=== PATIENT | female | born 1975 | race Caucasian/White ===

== ENCOUNTER 2018-06-08 13:04 | Emergency (ER) | payer MEDICARE ==
[2018-06-08 13:25] VITALS: Ht 167.6 cm
[2018-06-08] MEDS ORDERED: NEURONTIN800 MG PO (13:26)
[2018-06-08] MEDS ORDERED: BUSPAR10 MG PO (13:26)
[2018-06-08] MEDS ORDERED: PROTONIX40 MG PO (13:26)
[2018-06-08] MEDS ORDERED: CYMBALTA60 MG PO (13:27)
[2018-06-08] MEDS ORDERED: ABILIFY10 MG PO (13:27)
[2018-06-08] MEDS ORDERED: ULTRAM50 MG PO (13:27)
[2018-06-08] MEDS ORDERED: BACTRIM 400-801 TAB PO (16:54)
[2018-06-08] MEDS ORDERED: KEFLEX500 MG PO (16:54)
[2018-06-08 17:06] VITALS: BP 120/73
== END 2018-06-08 17:06 | disposition home or self-care (01) ==
LOC: D.ER 13:04
DX: F19.10 Other psychoactive substance abuse, uncomplicated (principal); L03.114 Cellulitis of left upper limb; L03.113 Cellulitis of right upper limb; L03.115 Cellulitis of right lower limb; Z86.59 Personal history of other mental and behavioral disorders; F17.200 Nicotine dependence, unspecified, uncomplicated

== ENCOUNTER 2019-03-01 14:01 | Inpatient (IN) | payer MEDICARE ==
[~2019-03-01] VITALS: Ht 167.6 cm; Wt 102.1 kg
--- NOTE | 2019-03-01 14:00 | NUR ---
RECEIVED PT TO FLOOR VIA STRETCHER ACCOMPANIED BY EMS. DENIES ANY NEEDS OR PAIN. ORIENTED TO ROOM AND BATHROOM AND FUNCTIONS OF REMOTE. EXPLAINED TO PT TO USE CALL LIGHT BEFORE GETTING UP SO WE CAN ASSIST, PT STATES SHE WANTS TO BE ABLE TO GET UP WITHOUT CALLING OR HAVING A BED ALARM. EXPLAINED TO PT THAT SHE COULD SIGN A BED/CHAIR ALARM WAIVER AND THAT IF SHE WAS TO FALL D/T NOT CALLING FOR ASSISTANCE WE WOULD NOT BE LIABLE. PT VERBALIZED UNDERSTANDING AND AGREED TO SIGNING WAIVER. PT HAS BROUGHT IN HER OWN WALKER HAS PT TOURIST ADVISER IT. CALL LIGHT WITHIN REACH, FALL PRECAUTIONS IN PLACE. WILL CONTINUE TO MONITOR
[~2019-03-01 14:01] MED LIST: ABILIFY10 MG PO; BACTRIM 400-801 TAB PO; BUSPAR10 MG PO; CYMBALTA60 MG PO; KEFLEX500 MG PO; NEURONTIN800 MG PO; PROTONIX40 MG PO; ULTRAM50 MG PO
[2019-03-01 14:46] VITALS: BP 103/61; BMI 36.4
[2019-03-01] MEDS ORDERED: ALBUTEROL SULF8.5 GM INH ×2 (15:01→17:09)
[2019-03-01] MEDS ORDERED: ABILIFY10 MG PO (15:05)
[2019-03-01] MEDS ORDERED: SYMBICORT 16010.2 GM INH (15:15)
[2019-03-01] MEDS ORDERED: VITAMIN D31000 UNI2 PO (15:22)
[2019-03-01] MEDS ORDERED: BUSPAR10 MG PO (15:22)
[2019-03-01] MEDS ORDERED: ADDERALL 20 MG20 M1 PO (15:25)
[2019-03-01] MEDS ORDERED: CYMBALTA60 MG PO (15:27)
[2019-03-01] MEDS ORDERED: FLUTICASONE PRO16 GM NASAL (15:29)
[2019-03-01] MEDS ORDERED: GABAPENTIN100 MG PO (15:31)
[2019-03-01] MEDS ORDERED: GLUCOSAMINE HC500 MG PO (15:33)
[2019-03-01] MEDS ORDERED: IPRAT-ALBUT 0.5-3 ML UPD (15:34)
[2019-03-01] MEDS ORDERED: MULTI-DAY VITAM1 TAB PO (15:35)
[2019-03-01] MEDS ORDERED: SINGULAIR10 MG PO (15:35)
[2019-03-01] MEDS ORDERED: XARELTO10 MG PO (15:37)
[2019-03-01] MEDS ORDERED: OXYCODONE HCL10 MG PO (15:37)
[2019-03-01] MEDS ORDERED: TOPAMAX200 MG PO (15:38)
--- NOTE | 2019-03-01 19:15 | NUR ---
PT SITTING IN RECLINER IN HER ROOM. ALERT AND ORIENTED X 3. DENIES ACUTE DISCOMFORT AT THIS TIME. NO NEEDS VOICED. DRESSING TO LEFT HIP IS CDI. NO DRAINAGE NOTED. SR'S ARE UP X 2 IN BED. CALL LIGHT AND BEDSIDE TABLE ARE WITHIN EASY REACH. PT HAS SIGNED A BED ALARM WAIVER.
--- NOTE | 2019-03-01 21:32 | NUR ---
PT ASSISTED TO CHANGE INTO BED CLOTHES WITH SBA. SHE DID EVERYTHING INDEPENDENTLY. SHE REQUESTED MED TIME CHANGES, AND 2 HOME MEDS THAT SHE WAS NOT STARTED ON IN THE HOSPITAL. WILL NOTIFY DR PEREIRA.
--- NOTE | 2019-03-02 02:03 | NUR ---
I have reviewed this patient and I concur with the Shift Assessment completed by the Licensed Practical Nurse today this shift.
--- NOTE | 2019-03-02 05:41 | NUR ---
PT RESTING IN BED WITH EYES OPEN. NO ACUTE DISTRESS NOTED.
[2019-03-02 08:00] VITALS: BP 135/92
[2019-03-02 09:23] LABS: BASOPHILS 0.3 % (0-2); EOSINOPHILS 5.3 % (0-7); IMMATURE GRANULOCYTES 0.1 % (0-5); LYMPHOCYTES 22.7 % (15-50); MCH 30.9 pg (26.0-34.0); MCHC 33.3 g/dL (31.0-37.0); MCV 92.6 fL (80.0-100.0); MEAN PLATELET VOLUME 10.4 fL (7.4-10.4); MONOCYTES 11.5 % (2-11); NEUTROPHILS 60.1 % (40-80); PLATELET COUNT 192 10x3/uL (130-400); RBC 3.24 10x6/uL (4.00-5.40); WBC 7.2 10x3/uL (4.8-10.8)
[2019-03-02 09:30] LABS: CALC OSMOLALITY 275 mosm/kg (275-300); CALCIUM 8.2 mg/dL (8.5-10.1); CARBON DIOXIDE 29.3 mmol/L (21.0-32.0); CHLORIDE - SERUM 101 mmol/L (98-107); CREATININE - SERUM 0.8 mg/dL (0.6-1.3); GLUCOSE 108 mg/dL (74-106); POTASSIUM - SERUM 3.7 mmol/L (3.5-5.1); SODIUM 138 mmol/L (136-145); UREA NITROGEN 11 mg/dL (7-18); eGFR NON AFRICAN AMERICAN 82 mL/min (90-120)
--- NOTE | 2019-03-02 10:38 | NUR ---
PATIENT REMAINS IN DROPLET ISOLATION. ALERT/ORIENT. HAS SIGNED BED/CHAIR ALARM WAVIOR. CALL LIGHT WITHIN REACH. VOICES NO NEEDS. WILL CONTINUE WITH PLAN OF CARE
[2019-03-02 11:43] VITALS: Ht 167.6 cm; Wt 102.1 kg
--- NOTE | 2019-03-02 11:45 | NUR ---
I have reviewed this patient and I concur with the Shift Assessment completed by the Licensed Practical Nurse today this shift.
--- NOTE | 2019-03-02 16:06 | NUR ---
PATIENTS MEDICATIONS GONE OVER WITH PATIENT WITH THIS NURSE PER PATIENT REQUEST. PATIENT IS NOT A FALL RISK. HAS SIGNED A BED/CHAIR ALARM WAVIOR. UP WALKING AROUND IN ROOM BY SELF
[2019-03-02 19:44] VITALS: BP 115/65
--- NOTE | 2019-03-02 19:44 | NUR ---
GREETED PATIENT AND INTRODUCED MYSELF. PATIENT IS SITTING ON SIDE OF BED WATCHING TV. STATES HER PAIN IS 8/10 LEFT HIP. RESPIRATIONS EVEN. NO S/S OF DISTRESS. CALL LIGHT IN REACH.
--- NOTE | 2019-03-03 01:45 | NUR ---
PATIENT RESTING QUIETLY WITH EYES CLOSED. RESPIRATIONS EVEN. NO S/S OF DISTRESS. SR UP X 2. BED IN LOWEST POSITION. CALL LIGHT IN REACH.
[2019-03-03 08:00] VITALS: BP 101/54
--- NOTE | 2019-03-03 08:00 | NUR ---
SHIFT ASSMT COMPLETED.BREAKFAST GIVEN.CL IN REACH.UP OOB IN CHAIR.
--- NOTE | 2019-03-03 16:00 | NUR ---
SITTING UP IN CHAIR.DENIES NEEDS.
[2019-03-03 19:53] VITALS: BP 96/43
--- NOTE | 2019-03-03 19:53 | NUR ---
GREETED PATIENT AND INTRODUCED MYSELF HER NURSE. PATIENT LAYING IN BED WATHCING TV. PATIENT STATES THAT HER LEFT HIP IS HURTING BUT THAT SHE HAS FELT BETTER TODAY THAN YESTERDAY. VITAL SIGNS OBTAINED. CALL LIGHT IN REACH.
--- NOTE | 2019-03-03 22:05 | NUR ---
REMOVED DRESSING FROM DRAIN SITE. CLEANED AREA WITH SAFECLENS AND REPLACED WITH CLEAN AND DRY DRESSING. AREA AROUND 7 DAY DRESSING IS RED AND WARM TO THE TOUCH. WILL MAKE A NOTE FOR DR. PEREIRA TO ASSESS.
[2019-03-04 06:57] LABS: BASOPHILS 0.2 % (0-2); EOSINOPHILS 9.9 % (0-7); HEMOGLOBIN 10.4 g/dL (12-16); IMMATURE GRANULOCYTES 0.2 % (0-5); LYMPHOCYTES 35.3 % (15-50); MCHC 33.5 g/dL (31.0-37.0); MCV 92.5 fL (80.0-100.0); MEAN PLATELET VOLUME 9.8 fL (7.4-10.4); MONOCYTES 14.2 % (2-11); NEUTROPHILS 40.2 % (40-80); RBC 3.35 10x6/uL (4.00-5.40); RDW 13.8 % (11.5-14.5)
[2019-03-04 06:58] LABS: PLATELET COUNT 266 10x3/uL (130-400); WBC 4.9 10x3/uL (4.8-10.8)
[2019-03-04 07:00] LABS: CALC OSMOLALITY 282 mosm/kg (275-300); CALCIUM 8.6 mg/dL (8.5-10.1); CARBON DIOXIDE 28.6 mmol/L (21.0-32.0); CHLORIDE - SERUM 107 mmol/L (98-107); CREATININE - SERUM 0.8 mg/dL (0.6-1.3); GLUCOSE 101 mg/dL (74-106); SODIUM 141 mmol/L (136-145); eGFR NON AFRICAN AMERICAN 82 mL/min (90-120)
[2019-03-04 07:02] LABS: UREA NITROGEN 17 mg/dL (7-18)
[2019-03-04 08:00] VITALS: BP 101/73
--- NOTE | 2019-03-04 08:00 | NUR ---
LAYING IN BED RESTING. DENIES INCREASED PAIN TO LEFT HIP BUT ASKING FOR PAIN MEDS. AMBULATES WITH WALKER. CALL LIGHT IN REACH
--- NOTE | 2019-03-04 09:47 | RHP ---
PATIENT: YOLY PEDRAZA MEDICAL RECORD: [id number] ACCOUNT: [id number] LOCATION:[facility]1116 : 71 ADMISSION DATE: 03/01/19 REHABILITATION HISTORY AND PHYSICAL EXAMINATION POST ADMISSION PHYSICIAN EXAMINATION DATE OF ADMISSION: 03/01/2019. ADMITTING DIAGNOSES: End-stage degenerative joint disease, status post left hip arthroplasty. HISTORY OF PRESENT ILLNESS: The patient is a 43-year-old female patient admitted secondary to a left extremity joint replacement. She had a left total hip for end-stage degenerative joint disease, which was unresponsive to conservative care. Prior to this, the patient has a long history of pain in her hip. The patient tried [id number] medications as well as anti-inflammatories, physical therapy and this worked, it just became unbearable. She had essentially no internal and external rotation. It was exacerbated by anything she did. On 02/27/2019, she underwent a total hip via Dr. Powell. Postop, she had acute blood loss anemia with her hemoglobin dropping from 14.2 to 9.5. She has complaints of 10/10. 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 She lives alone in a studio apartment, has no family to assist at discharge. She was moderately independent with a rolling walker for ADLs and mobility secondary to hip pain. She does not drive. She does have to get up 5-6 stairs to get back into her house. Currently, she was ambulating 80 feet with 3 rest stops. She has an antalgic and shuffling gait. She has balance deficits, decreased activity tolerance, decreased range of motion. She has gait disturbance, limited safety awareness, pain and high risk for falls. She wants to continue therapy and we want to maximize her understanding and safety with stair training, gait training, bed-chair and transfers, ADLs, and mobility. COMORBIDITIES: Include acute blood loss anemia, asthma, arthritis, fibromyalgia, chronic MRSA, status post left total hip. She has got a history of hepatitis C, atopic dermatitis, anxiety, depression, schizoaffective disuse, and a history of substance abuse in the past. PAST MEDICAL HISTORY: Significant for arthritis, degenerative joint disease, asthma, fibromyalgia, hep C, chronic MRSA, anxiety, depression, and schizoaffective disorder. PAST SURGICAL HISTORY: Includes D&C, , and she has had her knee scoped several times. ALLERGIES: LATEX AND ANYTHING FISH DERIVED. CURRENT MEDICATIONS: Include Abilify 15 mg q.h.s., Topamax 100 mg q.h.s., BuSpar 20 mg t.i.d. She is on Adderall 20 mg b.i.d., Xarelto 10 mg daily, multivitamin daily. She is on glucosamine 1 cap daily, Flonase nasal spray daily, duloxetine 60 mg daily, vitamin D daily. She is on Singulair 10 mg q.h.s., Neurontin 800 mg t.i.d., Advair 2 puffs b.i.d., albuterol updrafts as needed, polyethylene glycol 17 grams in 8 ounces of water daily. She is on OxyIR 10 mg q.6 hours and Ventolin once again p.r.n. shortness of breath. HABITS: Does have a history of substance abuse in the past. HISTORY AND PHYSICAL [id number] YOLY PEDRAZA FAMILY HISTORY: Noncontributory. SOCIAL HISTORY: The patient hopes to return back home and get back to her prior level of functioning. REVIEW OF SYSTEMS: GENERAL: Does complain of weakness and fatigue. HEENT: Denies cold, cough, or congestion. CARDIOVASCULAR: Denies any chest pain. PHYSICAL EXAMINATION: VITAL SIGNS: Stable, afebrile. GENERAL: A morbidly obese female in no acute distress, alert on exam. HEENT: Normocephalic and atraumatic. Mucosa moist. NECK: Supple. No lymphadenopathy. LUNGS: Clear in upper peck. HEART: Regular rate and rhythm. No murmurs, rubs or gallops. ABDOMEN: Soft, nontender, nondistended. Positive bowel sounds times 4. EXTREMITIES: No clubbing, cyanosis or edema. Her postop swelling appears normal. NEUROLOGIC: She does have a little bit of difficulty getting up out of a chair. LABORATORY DATA: White count is 7.2, H&H of 10 and 30, and platelet count is noted to be 192. Sodium is 138, potassium 3.7, BUN and creatinine of 11 and 0.8. Blood sugar is noted to be 108. ASSESSMENT: This is a 43-year-old female patient admitted to the rehab with a working diagnosis of status post left total hip replacement secondary to degenerative joint disease. The patient has potential to make improvement. We instituted the following multidisciplinary therapies including, but not limited to physical, occupational, respiratory, speech, nutritional services, prosthetics and orthotics. Given her complex medical condition and risk for more complications, rehabilitation services cannot be provided at a low level of care such as [facility]p facility. PLAN: 1. Admit to [facility] rehab for an intensive inpatient therapy to include the following disciplines: A. Physical therapy to improve gait, all transfer skills and bed mobility to a modified independent level. B. Occupational therapy to improve activities of daily living to a modified independent level. C. Case management to assist with discharge planning and placement options. D. Nutrition to assist with nutritional needs. E. Rehabilitation nursing to assist in monitoring the patient's underlying medical conditions and to assist with any type of bowel and bladder management. 2. The patient's current medications and medical care will be continued. 3. The patient will be placed on standard fall precautions. 4. The patient's estimated length of stay is approximately 7-10 days. 5. We will discuss patient during care team staff meeting this week. TRANSINT:[id number] Voice Confirmation ID: [id number] DOCUMENT ID: [id number] HISTORY AND PHYSICAL [id number] YOLY PEDRAZA notes whether there has been none or any medical/functional change since admission: - No change since the PAS HUGO attests patient continues to be appropriate for IRF: - Remains appropriate for the [facility] BRITTNY PEREIRA MD at 0947 CC: [id number] DICTATION DATE: 03/02/19 1130 PULP ROLLER: 03/02/19 1215 ADM IN [facility] [address] [place] [address]
--- NOTE | 2019-03-04 12:04 | NUR ---
SITTING UP IN RECLINER IN ROOM WAITING ON LUNCH. PAIN MEDS JUST GIVEN REQUESTED AND ORDERED. LEFT HIP INCISION IS RED AND WARM. NO DRAINAGE NOTED. CALL LIGHT IN REACH
--- NOTE | 2019-03-04 19:24 | NUR ---
PT IN BED LOWEST POSITION, ON DROPLET PRECAUTIONS MRSA, NO NEEDS NOTED, FLUIDS AND CALL LIGHT WITHIN REACH
[2019-03-04 20:38] VITALS: BP 107/53
[2019-03-04 23:56] VITALS: BP 126/46
[2019-03-05 00:51] VITALS: BP 107/53
[2019-03-05 08:00] VITALS: BP 115/60
--- NOTE | 2019-03-05 15:41 | NUR ---
SITTING IN WC IN THERAPY. REMAINS ON ISOLATION.
--- NOTE | 2019-03-05 19:34 | NUR ---
PT SITTING UP IN BED WATCHING TV,BED LOWEST POSITION, RESPIRATIONS EVEN AND UNLABORED, NO NEEDS NOTED, FLUIDS AND CALL LIGHT WITHIN REACH
[2019-03-05 20:43] VITALS: BP 104/63
[2019-03-05 21:45] VITALS: BP 101/52
[2019-03-06 06:32] LABS: BASOPHILS 0.2 % (0-2); EOSINOPHILS 7.9 % (0-7); HEMATOCRIT 29.7 % (36.0-48.0); HEMOGLOBIN 9.8 g/dL (12-16); IMMATURE GRANULOCYTES 0.2 % (0-5); MCH 30.3 pg (26.0-34.0); MEAN PLATELET VOLUME 9.3 fL (7.4-10.4); NEUTROPHILS 37.7 % (40-80); PLATELET COUNT 291 10x3/uL (130-400); RBC 3.23 10x6/uL (4.00-5.40); RDW 13.7 % (11.5-14.5); WBC 4.6 10x3/uL (4.8-10.8)
[2019-03-06 06:53] LABS: ANION GAP 6.8 mmol/L (8-16); CALCIUM 8.4 mg/dL (8.5-10.1); CARBON DIOXIDE 30.1 mmol/L (21.0-32.0); CREATININE - SERUM 0.9 mg/dL (0.6-1.3); POTASSIUM - SERUM 3.9 mmol/L (3.5-5.1)
[2019-03-06 07:47] VITALS: BP 97/54
--- NOTE | 2019-03-06 08:00 | NUR ---
SHIFT ASSMT COMPLETED.SITTING UP IN CHAIR.BREAKFAST TRAY GIVEN.
--- NOTE | 2019-03-06 09:45 | NUR ---
COMPLETED SHOWER.DRSG DC'D LEFT HIP.INCISION LOOKS GOOD BUT RED AROUND EDGES OF DRSG.
--- NOTE | 2019-03-06 10:00 | NUR ---
CO NO DRSG ON INCISION.DRSG REPLACE PER REQUEST.BANDAID REPLACED TO OLD DRAIN SITE THAT IS CLOSED AND NO DRAINAGE NOTED;DRSG'S REPLACED FOR COMFORT.
--- NOTE | 2019-03-06 15:29 | NUR ---
CARE TEAM MEETING: PATIENT DOING WELL IN THERAPY. TENATIVE DISCHARGE DATE IS 03/09/19. PATIENT WILL DISCHARGE WITH HOME HEALTH . WILL CONTINUE TO FOLLOW WITH PATIENT AND WILL ASSIST WITH DISCHARGE NEEDS.
--- NOTE | 2019-03-06 16:00 | NUR ---
DENIES NEEDS.CL IN REACH.
[2019-03-06 20:03] VITALS: BP 101/53
--- NOTE | 2019-03-06 20:16 | NUR ---
REST IN BED. CALL LIGHT IN REACH.
--- NOTE | 2019-03-07 01:52 | NUR ---
REST QUIETLY IN BED. NO S/S OF DISTRESS. CALL LIGHT IN REACH.
--- NOTE | 2019-03-07 03:31 | NUR ---
I have reviewed this patient and I concur with the Shift Assessment completed by the Licensed Practical Nurse today this shift.
--- NOTE | 2019-03-07 05:06 | NUR ---
REST IN BED. CALL LIGHT IN REACH.
[2019-03-07 08:13] VITALS: BP 115/66
--- NOTE | 2019-03-07 16:41 | NUR ---
LAYING ON SIDE IN BED. EYES CLOSED. NO S/S DISTRESS. ICE PACK ON HIP. SIDE RAILS UP X2. BED IN LOWEST POSITION. CALL LIGHT IN REACH
--- NOTE | 2019-03-07 17:40 | NUR ---
SITTING UP IN RECLINER FINISHING SUPPER. DENIES NEEDS. CALL LIGHT IN REACH.
[2019-03-07 19:00] VITALS: BP 102/73
--- NOTE | 2019-03-07 19:07 | NUR ---
GREETED PATIENT AND INTRODUCED MYSELF. PATIENT IS SITTING IN CHAIR WATCHING TV. RESPIRATIONS EVEN. NO S/S OF DISTRESS. STATES PAIN IS 6/10 LEFT LEG. ASK TO HAVE PRN IBUPROPEN.
--- NOTE | 2019-03-08 01:22 | NUR ---
PATIENT AWAKE AND SITTING IN CHAIR WATCHING TV. DENIES ANY NEEDS AT THIS TIME. CALL LIGHT IN REACH.
[2019-03-08 07:14] LABS: ANION GAP 13.4 mmol/L (8-16); CALCIUM 8.7 mg/dL (8.5-10.1); CARBON DIOXIDE 27.4 mmol/L (21.0-32.0); CREATININE - SERUM 0.9 mg/dL (0.6-1.3); POTASSIUM - SERUM 3.8 mmol/L (3.5-5.1)
[2019-03-08 07:25] LABS: BASOPHILS 0.2 % (0-2); EOSINOPHILS 6.1 % (0-7); HEMATOCRIT 31.9 % (36.0-48.0); HEMOGLOBIN 10.5 g/dL (12-16); IMMATURE GRANULOCYTES 0.2 % (0-5); LYMPHOCYTES 40.9 % (15-50); MCH 30.5 pg (26.0-34.0); MCHC 32.9 g/dL (31.0-37.0); MCV 92.7 fL (80.0-100.0); MEAN PLATELET VOLUME 9.4 fL (7.4-10.4); MONOCYTES 16.3 % (2-11); NEUTROPHILS 36.3 % (40-80); RBC 3.44 10x6/uL (4.00-5.40); WBC 5.2 10x3/uL (4.8-10.8)
[2019-03-08 07:30] LABS: PLATELET COUNT 350 10x3/uL (130-400)
[2019-03-08 09:00] VITALS: BP 108/74
--- NOTE | 2019-03-08 10:22 | NUR ---
Nutrition Follow Up: Chart reviewed. Pt is eating 75% meal avg on a regular diet. +BM 03/06/19. Meds and labs reviewed. Pt continues at low nutritional risk. RD following.
--- NOTE | 2019-03-08 15:08 | NUR ---
PATIENT DISCHARGING HOME IN AM, [facility] WILL PROVIDE THERAPY AT HOME. NO NEW DME NEEDED AT THIS TIME.PATIENT WILL CALL AND MAKE AN APPOINTMENT WITH JOHN WATERS APRN. DR. SMITH 05/14/19 @ 2:00, JIMMY ST 03/14/19 @ 1:40. PATIENT CHOICE FORM AND [facility] FORMS SIGNED, COPY GIVEN TO PATIENT AND FILED IN CHART. DISCAHRGE INSTRUCTIONS FAXED TO PCP AND TO HOME HEALTH AND REVIEWED WITH PATIENT.
--- NOTE | 2019-03-09 05:13 | NUR ---
THE PATIENT IS AWAKE AND TALKING TO STAFF. SHE HAS NO QUESTIONS OR COCNERNS AT THIS TIME.
[2019-03-09 07:55] VITALS: BP 102/57
--- NOTE | 2019-03-09 09:27 | NUR ---
PATIENT IS ALERT/ORIENT. CALL LIGHT WITHIN REACH. VOICES NO NEEDS AT THIS TIME. PLAN IS TO DISCHARGE HOME TODAY
--- NOTE | 2019-03-09 12:50 | NUR ---
DISCHARGE ORDERS GONE OVER WITH PATIENT. PRESCRIPTIONS GIVEN AND DISCHARGE MEDICATIONS CALLED INTO PHARMACY. FRIEND OF PATIENTS HERE TO TAKE PATIENT HOME. PATIENT HELPED OUT TO CARE BY STAFF
== END 2019-03-09 12:53 | disposition home health service (06) | DRG 560 ==
LOC: D.REHAB 14:01
PROVIDERS: ADMIT Emergency Medicine; ATTEND Emergency Medicine
DX: Z47.1 Aftercare following joint replacement surgery (principal); D62 Acute posthemorrhagic anemia; Z96.642 Presence of left artificial hip joint; M16.12 Unilateral primary osteoarthritis, left hip; M79.7 Fibromyalgia; A49.02 Methicillin resistant Staphylococcus aureus infection, unspecified site; F41.8 Other specified anxiety disorders; B19.20 Unspecified viral hepatitis C without hepatic coma; J45.909 Unspecified asthma, uncomplicated; L30.9 Dermatitis, unspecified; F25.9 Schizoaffective disorder, unspecified

== ENCOUNTER 2019-09-02 11:33 | Emergency (ER) | payer MEDICARE ==
[~2019-09-02] VITALS: Ht 167.6 cm; Wt 100.5 kg
[~2019-09-02 11:33] MED LIST changes: +ADDERALL 20 MG20 M1 PO; +ALBUTEROL SULF8.5 GM INH; +FLUTICASONE PRO16 GM NASAL; +GABAPENTIN100 MG PO; +GLUCOSAMINE HC500 MG PO; +IPRAT-ALBUT 0.5-3 ML UPD; +MULTI-DAY VITAM1 TAB PO; +OXYCODONE HCL10 MG PO; +SINGULAIR10 MG PO; +SYMBICORT 16010.2 GM INH; +TOPAMAX200 MG PO; +VITAMIN D31000 UNI2 PO; +XARELTO10 MG PO
[2019-09-02 11:36] VITALS: BP 130/86; Ht 167.6 cm; Wt 100.5 kg
[2019-09-02] MEDS ORDERED: HYDROCODON-ACE1 EA10 PO (11:39)
[2019-09-02] MEDS ORDERED: VOLTAREN75 MG PO (13:21)
[2019-09-02] MEDS ORDERED: VIBRAMYCIN 100100 MG PO (13:21)
== END 2019-09-02 13:45 | disposition home or self-care (01) ==
LOC: D.ER 11:33
DX: L03.114 Cellulitis of left upper limb (principal); R00.0 Tachycardia, unspecified; J44.9 Chronic obstructive pulmonary disease, unspecified; Z72.0 Tobacco use